=== PATIENT | female | born 1975 | race American Indian/Alaskan Native ===

== ENCOUNTER 2017-05-06 23:47 | Emergency (ER) | payer OTHER ==
[2017-05-07 02:08] LABS: Basophils % (Auto) 0.7 % (0.0-1.8); Eosinophils % (Auto) 1.5 % (0.0-4.3); Hematocrit 33.6 % (30.3-42.9); Hemoglobin 11.5 gm/dl (10.1-14.3); Mean Corpuscular HGB Conc 34 % (30-34); Mean Corpuscular Hemoglobin 31 pg (28-32); Mean Corpuscular Volume 92 fl (79-97); Platelet Count 240 K/mm3 (140-440); Red Blood Count 3.66 M/mm3 (3.65-5.03); Red Cell Distribution Width 13.1 % (13.2-15.2); White Blood Count 9.8 K/mm3 (4.5-11.0)
[2017-05-07 02:29] LABS: Anion Gap 17 mmol/L; Blood Urea Nitrogen 7 mg/dL (7-17); Calcium 8.9 mg/dL (8.4-10.2); Carbon Dioxide 23 mmol/L (22-30); Glucose 96 mg/dL (65-100); Potassium 3.8 mmol/L (3.6-5.0); Sodium 139 mmol/L (137-145)
[2017-05-07 03:01] LABS: Bacteria,Urine 1+ /HPF (Negative); Bilirubin,Urine NEG (Negative); Blood,Urine SM (Negative); Ketones,Urine NEG (Negative); Leukocyte Esterase,Urine TR (Negative); Mucus,Urine FEW /HPF; Nitrite,Urine NEG (Negative); Protein,Urine <15 mg/dL mg/dL (Negative); Urobilinogen,Urine < 2.0 mg/dL (<2.0)
--- NOTE | 2017-05-07 08:21 | XRay Report ---
CHEST TWO VIEWS: 05/06/17 23:47:00 CLINICAL: Shortness of breath. COMPARISON: none FINDINGS: Normal heart and pulmonary vasculature. The lungs are normally expanded and clear. The bones and soft tissues are normal. IMPRESSION: Normal chest.
--- NOTE | 2017-05-07 14:43 | Emergency Department Report ---
ED Chest Pain HPI - General Chief Complaint: Dyspnea/Respdistress Stated Complaint: SOB Time Seen by Provider: 05/07/17 14:40 Source: patient Mode of arrival: Ambulatory Limitations: No Limitations - History of Present Illness Initial Comments: Patient is a 41-year-old female with no past medical history presenting to the ER with multiple complaints. Patient reports at 8 PM last night she was sitting when she got extremely short of breath and felt chest pressure. Patient reports the shortness of breath has resolved but her chest pressure persists. The patient the pressure does not migrate or is associated with nausea, diaphoresis, paresthesias, jaw pain, or arm pain. Patient also reports a 3 week history of a sore throat, which she attributes to oral sex, and vaginal itching. Patient reports she was given antibiotics for her sore throat and was tested for gonorrhea and chlamydia which was negative. Patient also reports left hip pain secondary to silicone injections from years ago. Patient reports when she has these flares of swelling and pain she is placed on a Medrol Dosepak, last time she took steroids was the beginning of the month. Otherwise no fevers, chills, headaches, dizziness, vomiting, abdominal pain, nausea, travel, sick contacts. MD Complaint: chest pain - Related Data Previous Rx's Medication Instructions Recorded Last Taken Type Ibuprofen [Motrin 800 MG tab] 800 mg PO Q8H PRN #30 tablet 03/23/16 Unknown Rx Allergies Allergy/AdvReac Type Severity Reaction Status Date / Time acetaminophen Allergy Nausea Verified 03/23/16 16:51 [From Darvocet-N 100] propoxyphene napsylate Allergy Nausea Verified 03/23/16 16:51 [From Darvocet-N 100] Heart Score - HEART Score History: Slightly suspicious EKG: Normal Age: < 45 Risk factors: No known risk factors Troponin: < normal limit HEART Score: 0 ED Review of Systems ROS: Stated complaint: SOB Other details as noted in HPI Comment: All other systems reviewed and negative ED Past Medical Hx - Past Medical History Previous Medical History?: Yes Additional medical history: chronic hip pain, acute kidney injury from Vancomycin - Social History Smoking Status: Never Smoker - Medications Home Medications: Home Medications Medication Instructions Recorded Confirmed Last Taken Type Ibuprofen [Motrin 800 MG tab] 800 mg PO Q8H PRN #30 tablet 03/23/16 Unknown Rx ED Physical Exam - General Limitations: No Limitations General appearance: alert, in no apparent distress - Head Head exam: Present: atraumatic, normocephalic - Eye Eye exam: Present: normal appearance, PERRL, EOMI Pupils: Present: normal accommodation - ENT ENT exam: Present: mucous membranes moist, TM's normal bilaterally, normal external ear exam, other (mildly erythematous pharynx, no exudates, no tonsillar enlargement) - Neck Neck exam: Present: normal inspection, full ROM. Absent: tenderness, meningismus, lymphadenopathy - Respiratory Respiratory exam: Present: normal lung sounds bilaterally. Absent: respiratory distress, wheezes, rales, rhonchi, stridor - Cardiovascular Cardiovascular Exam: Present: regular rate, normal rhythm, normal heart sounds. Absent: irregular rhythm, systolic murmur, diastolic murmur, rubs, gallop - GI/Abdominal GI/Abdominal exam: Present: soft, normal bowel sounds - External exam: Present: normal external exam. Absent: erythema, swelling, lesions, lacerations, ecchymosis, bleeding Speculum exam: Present: normal speculum exam. Absent: erythema, vaginal discharge, cervical discharge, vaginal bleeding Bi-manual exam: Present: normal bi-manual exam. Absent: cervical motion tendernes, adnexal tenderness - Extremities Exam Extremities exam: Present: normal inspection, full ROM, other (L hip swellings palpated (site of silicone injections), no signs of cellulitis). Absent: tenderness - Back Exam Back exam: Present: normal inspection - Neurological Exam Neurological exam: Present: alert, oriented X3 - Psychiatric Psychiatric exam: Present: normal affect, normal mood - Skin Skin exam: Present: warm, dry, intact, normal color. Absent: rash ED Course Vital Signs 05/07/17 05/07/17 05/07/17 01:14 15:12 15:13 Temperature 98.4 F 98.8 F Pulse Rate 67 89 Respiratory 20 16 16 Rate Blood Pressure 117/79 Blood Pressure 133/77 [Left] O2 Sat by Pulse 100 100 100 Oximetry CHASITY score - Chasity Score Age > 65: (0) No Aspirin use within the Past 7 Days: (0) No 3 or more CAD Risk Factors: (0) No 2 or more Angina events in past 24 hrs: (0) No Known CAD with more than 50% Stenosis: (0) No Elevated Cardiac Markers: (0) No ST Deviation Greater than 0.5mm: (0) No CHASITY Score: 0 ED Medical Decision Making - Lab Data Result diagrams: 05/07/17 01:41 05/07/17 01:41 - EKG Data -: EKG Interpreted by Me - EKG Data 05/07/17 14:42 EKG 05/07/17 01:19 NSR at 74 beats a minute, QTC 441 ms, normal axis, no LVH, no ST changes, no STEMI - Radiology Data Radiology results: report reviewed cxr: No acute cardiopulmonary findings - Medical Decision Making Results discussed with patient. Given chronic problems from her silicone injections and recent steroid use, patient can follow up with PMD Decadron 10mg IV given for pharyngitis. Critical care attestation.: If time is entered above; I have spent that time in minutes in the direct care of this critically ill patient, excluding procedure time. ED Disposition Clinical Impression: Chest pain, Pharyngitis, Skin inflammation Disposition: - TO HOME OR SELFCARE Is pt being admited?: No Condition: Stable Instructions: Chest Pain (ED), Pharyngitis (ED) Referrals: PRIMARY CARE, [Primary Care Provider] - 3-5 Days
[2017-05-07 15:13] VITALS: BP 133/77
[2017-05-07] MEDS ORDERED: DECADRON IV ONE (16:04)
== END 2017-05-07 16:27 | disposition home or self-care (01) ==
LOC: ED 23:47
DX: J02.9 Acute pharyngitis, unspecified (principal); R07.89 Other chest pain; L08.9 Local infection of the skin and subcutaneous tissue, unspecified
CPT/HCPCS: 36415; 71020; 80048; 81001; 84484; 84703; 85025; 85379; 93005; 93010; 96374; 99284; J1100